=== PATIENT | male | born 1995 | race Hispanic/Latino ===

== ENCOUNTER 2018-02-24 11:06 | Emergency (ER) | payer OTHER ==
[~2018-02-24] VITALS: Ht 170.2 cm; Wt 68.0 kg
--- NOTE | 2018-02-24 13:06 | ED ANKLE/FOOT INJURY COMPLAINT ---
History of Present Illness General Chief Complaint: Laceration Procedure Stated Complaint: LEG LAC Source: patient Exam Limitations: no limitations Vital Signs & Intake/Output Vital Signs & Intake/Output Vital Signs Date Time Temp Pulse Resp B/P B/P Pulse O2 O2 Flow FiO2 Mean Ox Delivery Rate 02/24 1109 97.0 100 20 113/73 97 Room Air Allergies Coded Allergies: No Known Allergies (02/24/18) Triage Note: PT TO ED C/O LAC TO SIDE OF RIGHT FOOT FROM A CARPET KNIFE, HAPPENED AT WORK. UNKNOWN LAST TETANUS. Triage Nurses Notes Reviewed? yes Occurred: just prior to arrival Duration: hour(s): (2), constant, continues in ED Timing: single episode today Severity: mild, moderate Severity Numbers: 7 Pain/Injury Location: Right: Foot. Method of Injury: laceration No Modifying Factors: none HPI: 22-year-old male with no medical history presents for evaluation of a left abrasion to his right foot. Patient reports he was cutting carpet when the knife slipped and cut his foot. He denies any other injuries. He is unsure of his last tetanus shot. Denies numbness or tingling no problems with range of motion. Past History Travel History Traveled to [place] past 21 day No Medical History Any Pertinent Medical History? see below for history Tetanus Vaccine: 02/24/18 Surgical History Surgical History: non-contributory Psychosocial History What is your primary language Chinese Tobacco Use: Never used ETOH Use: denies use Illicit Drug Use: denies illicit drug use Family History Hx Contributory? No Review of Systems Review of Systems Constitutional: Reports: no symptoms. EENTM: Reports: no symptoms. Respiratory: Reports: no symptoms. Cardiovascular: Reports: no symptoms. GI: Reports: no symptoms. Genitourinary: Reports: no symptoms. Musculoskeletal: Reports: no symptoms. Skin: Reports: see HPI (laceration ). Neurological/Psychological: Reports: no symptoms. Hematologic/Endocrine: Reports: no symptoms. Immunologic/Allergic: Reports: no symptoms. All Other Systems: Reviewed and Negative Physical Exam Physical Exam General Appearance: well developed/nourished, no apparent distress, alert, awake Head: atraumatic, normal appearance Eyes: Bilateral: normal appearance, EOMI. Ears, Nose, Throat: hearing grossly normal Neck: normal inspection, supple, full range of motion Cardiovascular/Respiratory: no respiratory distress Back: normal inspection, normal range of motion Leg/Knee/Thigh Left: normal range of motion, normal inspection Leg/Knee/Thigh Right: normal range of motion, normal inspection Ankle Left: normal inspection, normal range of motion Ankle Right: normal inspection, normal range of motion Foot Left: normal inspection, normal range of motion Foot Right: normal range of motion, there is a 1.5cm lienar horizontal laceration located on the medial apect of the distal ankle/proximal foot. full orm inatct. n/v supply intact Neuro/Vascular: normal motor function, normal sensation Tendon: normal tendon function Psychiatric: awake, alert, oriented x 3 Skin: intact, normal color, warm/dry Progress Differential Diagnosis: dislocation, sprain, contusion, laceration fb Plan of Care: pt is here for a lcaeration to the right foot. he is neuro/vascular supply intact. the lac was cleaned with water and betadine. 1 percent lido was used for local pain control. 4 4-0 nylon simple interupted sutures were used to approximate the wound. pt tolerated well. sterile dressing applied. pt was given crutches. discussed wound care and return precautions. sutures removed in 7-10 days. Departure Departure Disposition: HOME OR SELF CARE Condition: Stable Clinical Impression Primary Impression: Foot laceration Qualifiers: Encounter type: initial encounter Laterality: right Qualified Code: S91.311A - Laceration without foreign body, right foot, initial encounter Referrals: Patient Has No Primary Care Dr (PCP/Family) Additional Instructions: Keep the area clean and dry. Change dressing once daily. After day 4 or 5 leave the area open to air dry. Apply bacitracin for the first 3 days only. [place] for signs of infection like redness swelling discharge or pain. The stitches need to come out in 7-10 days. Return sooner with any concerns. Departure Forms: Customer Survey General Discharge Information Industrial Accident Report Procedures Laceration/Wound Repair Laceration/Wound Repair: Wound Location: lower extremity Wound's Depth, Shape: linear, subcutaneous Wound Length (cm): 1.5 Wound Explored: clean, irrigated extensively Irrigated w/ Saline (ccs): 300 Betadine Prep? Yes Anesthesia: 1% lidocaine Volume Anesthetic (ccs): 5 Wound Debrided: minimal Wound Repaired With: sutures Suture Size/Type: 4:0, nylon Number of Sutures: 4 Layer Closure? No Sterile Dressing Applied: Yes Tetanus Status: up to date (today)
[2018-02-24 13:16] VITALS: BP 110/70
== END 2018-02-24 13:17 ==
LOC: ERH 11:06
DX: S91.311A Laceration without foreign body, right foot, initial encounter (principal); W26.0XXA Contact with knife, initial encounter; Y92.89 Other specified places as the place of occurrence of the external cause; Y93.89 Activity, other specified
CPT/HCPCS: 90471; 90714